=== PATIENT | male | born 1955 | race African-American/Black ===

== ENCOUNTER 2020-05-05 00:08 | Inpatient (IN) | payer MEDICARE, OTHER ==
[2020-05-05] MEDS ORDERED: Morphine 4 MG/ML VIAL ONE (00:56)
[2020-05-05] MEDS ORDERED: Ondansetron PF 4 MG/2 ML Vial ONE (00:56)
[2020-05-05 01:01] LABS: #Lymphocytes 0.6 thou/uL (1.20-3.40); #Monocytes 0.7 thou/uL (0.11-0.59); #Neutrophils 3.8 thou/uL (1.40-6.50); %Eosinophils 0.6 % (0.0-10.0); %Lymphocytes 11.6 % (21.0-51.0); %Monocytes 14.3 % (0.0-10.0); %Neutrophils 73.5 % (42.0-75.0); Hemoglobin 11.2 g/dL (14.0-18.0); Mean Corpuscular HGB CONC 34.1 g/dL (32.0-36.0); Mean Corpuscular Volume 99.8 fL (78.0-98.0); Mean Platelet Volume 8.8 fL (7.4-10.4); Platelet Count 152 thou/uL (130-400); Red Blood Cell (RBC) Count 3.28 mill/uL (4.70-6.10); White Blood Cell (WBC) Count 5.2 thou/uL (4.8-10.8)
[2020-05-05 01:07] LABS: INR-International Normal Ratio 2.5; PTT 38.8 sec (22.9-36.1); Prothrombin Time 26.4 sec (12.0-14.7)
[2020-05-05 01:21] LABS: ALT (SGPT) 25 U/L (8-55); AST (SGOT) 32 U/L (5-34); Albumin 3.8 g/dL (3.4-4.8); Alkaline Phosphatase 112 U/L (40-110); Anion Gap 11 mmol/L (10-20); BUN (Urea Nitrogen) 14 mg/dL (8.4-25.7); Bilirubin, Total 1.2 mg/dL (0.2-1.2); Calc. Creatinine Clearance 0 mL/min (70-130); Calcium 8.3 mg/dL (7.8-10.44); Carbon Dioxide 24 mmol/L (23-31); Chloride 99 mmol/L (98-107); Estimated GFR-MDRD 47; Globulin 3.7 g/dL (2.4-3.5); Glucose 116 mg/dL (80-115); Potassium 4.1 mmol/L (3.5-5.1); Protein, Total 7.5 g/dL (5.8-8.1); Sodium 130 mmol/L (136-145)
[2020-05-05] MEDS ORDERED: Ondansetron PF 4 MG/2 ML Vial IVP PRN (01:33)
[2020-05-05] MEDS ORDERED: Promethazine HCl 25 MG/ML VIAL IM PRN (01:33)
[2020-05-05] MEDS ORDERED: Dextrose 5% in Water 1,000 ML IV PRN (01:33)
[2020-05-05] MEDS ORDERED: Dextrose 50% Abboject 50 ML SYRINGE SLOW IVP PRN (01:33)
[2020-05-05] MEDS ORDERED: hydrALAZINE 20 MG/ML VIAL SLOW IVP PRN (01:33)
[2020-05-05] MEDS ORDERED: Cyclobenzaprine 10 MG TAB PO PRN (01:37)
[2020-05-05] MEDS ORDERED: traMADol HCl 50 MG TAB PO PRN (01:37)
[2020-05-05 01:58] LABS: Phosphorus 1.9 mg/dL (2.3-4.7)
[2020-05-05] MEDS ORDERED: Sodium Chloride 0.9% 1,000 ML IV SCH ×2 (04:00→08:45)
[2020-05-05] MEDS ORDERED: Sodium Phosphate 30 MMOL in Sodium Chloride 0.9% 250 ML 250 ML IVPB SCH (04:30)
--- NOTE | 2020-05-05 05:36 | HP ---
This is Adia Davison NP dictating a report for Al Pardo DO. REQUESTING PHYSICIAN: VIKTORIA SerraC CONSULTS: Orthopedic Surgery, Dr. Patel. CHIEF COMPLAINT: Mechanical fall one day ago, right knee pain. 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 The patient reports that he slipped and fell one and a half days ago. The patient reported right knee pain which has increased in pain and swelling since. The patient was initially seen at [facility] after the initial incident in which x-rays were obtained and revealed a tibial plateau fracture. It was recommended that he be transferred to [facility] for definitive care with Orthopedic Surgery, although the patient left AMA to attend a . The patient is from the [facility] and was in town for the . The patient states that he has been getting around in a wheelchair since falling. The patient has been wearing a knee immobilizer. The patient presented to the emergency room today for definitive care as his pain is increased and swelling has increased. The patient does take Xarelto every night and his last dose was on 05/04/2020 at 2230. The patient denies any chest pain, shortness of breath, or feeling dizzy or lightheaded prior to tripping and falling. The patient denies any recent illness, cough, cold, fever, chills, or congestion. REVIEW OF SYSTEMS: 10-point review of systems is negative unless otherwise indicated in the above HPI. PAST MEDICAL HISTORY: Hypertension, pacemaker, deep vein thrombosis. SURGICAL HISTORY: Pacemaker, left ytviy-qaa-syud amputation in 2006 from a DVT. SOCIAL HISTORY: Drinks approximately 2 beers a day but states does not have to drink every day, denies any illicit drug use, denies tobacco use, the patient is a retired auto salesman. ALLERGIES: NO KNOWN DRUG ALLERGIES. MEDICATIONS: Xarelto 10 mg at bedtime. Unknown blood pressure medications, states he takes multiple medications. PHYSICAL EXAMINATION: VITAL SIGNS: Blood pressure 128/83, pulse 70, respirations 20, temperature 98.4, SpO2 of 98% on room air. GENERAL: Well-appearing gentleman, awake, alert, in no distress. HEENT: Head is atraumatic and normocephalic. Pupils are equal. Mucous membranes are moist. NECK: Normal range of motion of neck, no cervical spine tenderness, trachea is midline. RESPIRATORY: Equal chest rise and fall, bilateral breath sounds clear, no wheezing, rales, or rhonchi. CARDIOVASCULAR: Regular rate, regular rhythm, no murmur. ABDOMEN: Soft, nontender, nondistended. EXTREMITIES: Left mland-wpj-fxwl amputation, right knee extremely swollen with ecchymosis, tender to palpation, decreased range of motion of the knee due to pain and swelling, edema extends to the foot. Unable to palpate dorsalis pedis or posterior tibial pulse. Positive pulses obtained with Doppler. Sensation is intact. Extremity is warm. NEURO: No focal deficits, GCS 15. LABORATORY DATA: WBC 5.2, RBC 3.28, hemoglobin 11.2, hematocrit 32.8, platelets 152. PT 26.4, INR 2.5, APTT 38.8. Sodium 130, potassium 4.1, chloride 99, carbon dioxide 24, BUN 14, creatinine 1.77, estimated GFR 47, glucose 116, calcium 8.3, phosphorus 1.9, magnesium 2.0, AST 32, ALT 25, alkaline phos 112, albumin 3.8. DIAGNOSTIC DATA: 12-lead EKG, paced rhythm at 70 beats per minute. Lower extremity CT, pending. Chest x-ray; cardiomegaly, dual-chamber pacemaker in place, pending official read. Right knee x-ray on 05/04/2020, impression, there is a mainly but slightly obliquely oriented fracture through the medial tibial plateau. A fracture line along the medial cortex of the proximal tibial shaft. IMPRESSION: 1. Status post mechanical fall. 2. Right tibial plateau fracture. 3. Acute traumatic pain. 4. Hyponatremia. 5. Hypophosphatemia. 6. Acute kidney injury. 7. Long-term anticoagulation use. 8. History of pacemaker placement, deep vein thrombosis, left awrqk-fzj-qkbf amputation, and hypertension. PLAN: 1. The patient will be n.p.o. with maintenance IV fluids, normal saline at 120 an hour. 2. Replace electrolytes. 3. Most likely the patient will go to the OR in 24 hours as the patient has taken his Xarelto recently. The patient will be on bedrest with a knee immobilizer in place until surgery. Postop, we will have PT and OT evaluate and treat. The plan will be discussed with the attending after this dictation. Job ID: [id number]
[2020-05-05] MEDS: Acetaminophen 500 MG TAB PO SCH ×4 (05:38→23:04)
[2020-05-05] MEDS: traMADol HCl 50 MG TAB PO SCH ×4 (05:39→23:05)
[2020-05-05 05:48] VITALS: BMI 20.9
[2020-05-05] MEDS: Polyethylene Glycol 3350 17 GM Packet PO SCH (07:20)
--- NOTE | 2020-05-05 09:14 | RAD ---
PORTABLE CHEST: DATE: 05/05/2020. PROVIDED CLINICAL HISTORY: Preop. FINDINGS: Comparison 10/26/2009. Cardiac silhouette remains enlarged. Left subclavian cardiac pacing device i s again seen, with lead tips overlying expected locations of RA and 3 leads overlying the left heart presumably all in RV. There is a disconnected lead at the generator. No focal consolidation, pleura l fluid, or pneumothorax apparent. IMPRESSION: Cardiomegaly without evidence for an acute cardiopulmonary process. POS: LETICIA
--- NOTE | 2020-05-05 09:17 | CT ---
PRELIMINARY REPORT/DIRECT RADIOLOGY/EMERGENCY AFTER HOURS PROCEDURE EXAM: CT right Knee without IV contrast CLINICAL HISTORY: Pt slipped and fell getting out of his car on 05/03/20. Reports right knee pain that has worsened since the injury. He was seen at [facility] ED earlier today where X-ray revealed tibial plateau fracture. He was to be transferred here for ortho eval, but left there AMA to attend a . He has come in here now that the is over. Denies any other complaints, concerns, o r injuries. No alleviating factors. Exacerbated by movement and weight bearing. TECHNIQUE: Axial images were acquired through the right knee without IV contrast. Reformatted images were reviewed. COMPARISON: None provided. FINDINGS: BONES: There is a comminuted fracture of the medial tibial plateau extending into the tibial spine re gion. 7 mm of step-off at the articular surface. The bones are osteopenic. JOINTS: No dislocation. The joint spaces are normal. Moderate joint effusion with hyperdense blood. SOFT TISSUES: Soft tissue swelling around the right knee. IMPRESSION: Comminuted fracture of the medial tibial plateau extending into the tibial spine region w ith side millimeters of step-off. Associated moderate lipohemarthrosis and soft tissue swelling. Ost eopenia. ELECTRONICALLY SIGNED BY: Vicente Carter MD May 05, 2020 2:02:31 AM CDT FINAL REPORT EMERGENT AFTER HOURS CT RIGHT KNEE: IMPRESSION: Agree with the preliminary interpretation. POS: LETICIA
[2020-05-05] MEDS ORDERED: CEFAZOLIN 2 GM in Premix Bag 1 BAG IVPB SCH (10:30)
--- NOTE | 2020-05-05 11:26 | CON ---
DATE OF CONSULTATION: This is Shane Chou PA-C dictating a report for Artie Patel MD. HISTORY OF PRESENT ILLNESS: We were asked by Trauma and Emergency Room to see the patient. The patient yesterday got up and stumbled sustaining a tibial plateau to right leg. 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 The patient is currently in a knee immobilizer and this feels okay as long as he has not moved his leg. He denies any other symptoms. No loss of consciousness when he fell and his foot sensations are good as are pulses on that side. PAST MEDICAL HISTORY: Hypertension, pacemaker, and DVT. PAST SURGICAL HISTORY: Pacemaker and above-knee amputation. SOCIAL HISTORY: Lives with his , , and has a few beers every couple of days. No nicotine or illicit drug use. FAMILY HISTORY: For this event, noncontributory. ALLERGIES: NO KNOWN DRUG ALLERGIES. CURRENT MEDICATIONS: Xarelto and he takes some OTC medicines and he does have a list of medications, but is not here currently. REVIEW OF SYSTEMS: No shortness of breath or chest pain currently. Just complains of that right knee being irritated, but no numbness or tingling. Also, denies any bowel or bladder problems. PHYSICAL EXAMINATION: GENERAL: Well-nourished, well-developed male, alert, pleasant, in no acute distress. Speech clear. Affect pleasant. Answers questions appropriately. He is alert and oriented x3. HEENT: Normal exam. Face symmetric. Tongue midline. NECK: Supple. Trachea midline. EXTREMITIES: Upper extremities are equal size, shape, symmetry. Normal bulk and tone. Sensation and pulses are equal. Respirations 16. No acute distress. Pelvis, no pain with rocking. Lower extremity: Right lower extremity, is in a knee immobilizer. His knee is quite tender to palpation and swollen. No ecchymoses seen as of yet. He is moving the right lower extremity from the knee down fairly well. Foot and ankle, no pain with palpation. Sensations and pulses are intact in the right lower extremity. Left lower extremity, above-knee amputation. DIAGNOSTIC STUDIES: X-ray showed a tibial plateau fracture. CBC; RBCs 3.28, hemoglobin 11.2, hematocrit 32.8, and platelets 152. Coags; PT 26.4, PTT 38.8, and INR 2.5. Chemistries; creatinine is a little high at 1.77, glucose 116, and alkaline phosphatase 112. ASSESSMENT: Right tibial plateau fracture secondary to fall. PLAN: Trauma admit the patient. They will deal with his medical issues or plan once he is off Xarelto for two days, which will be yesterday and today's evening dose. We will plan to take him to the operating room tomorrow and do an ORIF of the tibial plateau. I discussed with the patient the procedure. He had some questions and concerns that were addressed and answered. Once we talked about surgical risks and benefits, the patient was amenable to go forth with surgery. We will get him on surgery schedule. Antibiotics ordered. If his comes in, who he states is a nurse and has more questions, we will be happy to address those at that time Job ID: [id number]
[2020-05-05 12:28] LABS: SARS-CoV-2 MS2 Positive; SARS-CoV-2 N Gene Negative; SARS-CoV-2 S Gene Negative; SARS-CoV-2 orf1ab Negative
--- NOTE | 2020-05-05 17:11 | PRG ---
DATE OF SERVICE: 05/05/2020 SUBJECTIVE: The patient was seen this afternoon on rounds. He was sitting up in bed with no signs of acute distress. He reported his pain is well controlled. He is pending OR for a right tibial plateau fracture. The patient will go to the OR tomorrow. OBJECTIVE: VITAL SIGNS: Temperature 97.4, pulse 70, respirations 16, oxygen saturation 100% on room air, blood pressure 126/78. GENERAL: Well-appearing elderly male, sitting up in bed with no signs of acute distress. PULMONARY: Equal chest rise and fall. Clear breath sounds bilaterally. No signs of acute respiratory distress. CARDIAC: Regular rate and rhythm. GI: Abdomen is soft, nontender, nondistended. EXTREMITIES: 2+ pulses in all extremities. Gross motor and sensation intact. No significant swelling noted. Previous left AKA noted. Right-sided knee immobilizer in place and fitting appropriately. NEUROLOGIC: GCS is 15. LABORATORY FINDINGS: White count 5.2, hemoglobin 11.2, hematocrit 32.8, platelets 152. Sodium 130, potassium 4.1, chloride 99, bicarb 24, BUN 14, creatinine 1.77, glucose 116, phosphorus 1.9, magnesium 2.0. DIAGNOSTIC FINDINGS: There are no new diagnostic findings to report. ASSESSMENT: 1. Status post ground level fall 1 day ago, on Xarelto. 2. Right tibial plateau fracture. 3. Acute hyponatremia and hypophosphatemia. 4. Acute kidney injury. 5. History of deep venous thrombosis, left akfua-dna-imvr amputation from previous deep venous thrombosis, hypertension, and pacemaker. PLAN: Continue current regular diet. Continue normal saline at 100 an hour for a total of one additional liter. N.p.o. at midnight for OR tomorrow with Dr. Patel. The patient's is to bring his medications and we will complete a med rec at that time and start medications as clinically indicated. Continue to hold Xarelto at this time. Electrolytes have been replaced. Repeat electrolytes in the morning. Job ID: [id number]
[2020-05-05] MEDS: Carvedilol 6.25 MG TAB PO SCH (22:02)
[2020-05-05] MEDS: Sotalol HCl 80 MG TAB PO SCH (22:02)
[2020-05-05] MEDS: levETIRAcetam 500 mg/5 ml Oral Solution PO SCH (22:03)
[2020-05-05] MEDS: Sodium Bicarbonate Tab 325 MG TAB PO SCH (22:03)
[2020-05-06 05:29] LABS: Hemoglobin 10.5 g/dL (14.0-18.0); Mean Corpuscular HGB CONC 33.6 g/dL (32.0-36.0); Mean Corpuscular Hemoglobin 34.2 pg (27.0-31.0); Mean Platelet Volume 8.8 fL (7.4-10.4); Platelet Count 136 thou/uL (130-400); RBC Distribution Width 13.2 % (11.5-14.5); Red Blood Cell (RBC) Count 3.06 mill/uL (4.70-6.10); White Blood Cell (WBC) Count 4.4 thou/uL (4.8-10.8)
[2020-05-06 05:31] LABS: INR-International Normal Ratio 1.6; Prothrombin Time 18.9 sec (12.0-14.7)
[2020-05-06 06:03] LABS: Anion Gap 9 mmol/L (10-20); BUN (Urea Nitrogen) 16 mg/dL (8.4-25.7); Calc. Creatinine Clearance 46 mL/min (70-130); Calcium 7.6 mg/dL (7.8-10.44); Carbon Dioxide 23 mmol/L (23-31); Chloride 105 mmol/L (98-107); Estimated GFR-MDRD 49; Glucose 81 mg/dL (80-115); Magnesium 2.1 mg/dL (1.6-2.6); Phosphorus 2.7 mg/dL (2.3-4.7); Potassium 4.4 mmol/L (3.5-5.1); Sodium 133 mmol/L (136-145)
[2020-05-06] MEDS: Acetaminophen 500 MG TAB PO SCH ×3 (06:55→18:06)
[2020-05-06] MEDS: traMADol HCl 50 MG TAB PO SCH ×3 (06:55→18:04)
[2020-05-06] MEDS ORDERED: Meperidine HCl/PF 25 MG/ML VIAL SLOW IVP PRN (08:14)
[2020-05-06] MEDS ORDERED: Promethazine HCl 25 MG/ML VIAL SLOW IVP PRN (08:14)
[2020-05-06] MEDS ORDERED: Promethazine HCl 25 MG/ML VIAL IM PRN (08:14)
[2020-05-06] MEDS ORDERED: HYDROmorphone 2 MG/ML VIAL SLOW IVP PRN (08:14)
[2020-05-06] MEDS ORDERED: Ondansetron HCl/PF 4 MG/2 ML Vial IVP PRN (08:14)
[2020-05-06] MEDS ORDERED: Fentanyl 100 MCG/2 ML VIAL ONE (08:53)
[2020-05-06] MEDS ORDERED: Bupivacaine HCl 0.5%/Epinephrine 1:200,000/PF 30 ml Vial ONE (10:57)
[2020-05-06] MEDS ORDERED: Sodium Phosphate 15 MMOL in Sodium Chloride 0.9% 250 ML 250 ML IVPB SCH (13:00)
[2020-05-06] MEDS ORDERED: PROPOFOL 200 MG/20 ML VIAL ONE (14:07)
[2020-05-06] MEDS ORDERED: Lidocaine 1% PF 5 ML VIAL ONE (14:07)
[2020-05-06] MEDS ORDERED: Ondansetron PF 4 MG/2 ML Vial ONE (14:07)
[2020-05-06] MEDS ORDERED: Rocuronium Bromide 10 MG/ML (10ML VIAL) ONE (14:07)
[2020-05-06] MEDS ORDERED: PHENYLEPHRINE-NS 100 MCG/ML 10 ML SYRINGE ONE (14:07)
[2020-05-06] MEDS ORDERED: Dexamethasone 20 MG/5 ML VIAL ONE (14:07)
--- NOTE | 2020-05-06 14:16 | RAD ---
TWO VIEWS RIGHT FORELEG: Date: 05-06-2020 Provided Clinical History: ORIF FINDINGS: Two spot fluoroscopic views of the right proximal foreleg demonstrate medial sideplate and screw fixa tion of previously described medial tibial plateau fracture, with resultant improved alignment. IMPRESSION: As above. POS: LETICIA
[2020-05-06] MEDS: levETIRAcetam 500 mg/5 ml Oral Solution PO SCH ×2 (14:19→21:11)
[2020-05-06] MEDS: Sodium Bicarbonate Tab 325 MG TAB PO SCH ×2 (14:20→21:11)
[2020-05-06] MEDS: Allopurinol 300 MG TAB PO SCH (14:20)
[2020-05-06] MEDS: Carvedilol 6.25 MG TAB PO SCH ×2 (14:21→21:08)
[2020-05-06] MEDS: Polyethylene Glycol 3350 17 GM Packet PO SCH (14:24)
[2020-05-06] MEDS: CEFAZOLIN 2 GM in Premix Bag 1 BAG IVPB SCH ×2 (14:59→22:07)
--- NOTE | 2020-05-06 15:49 | OP ---
DATE OF PROCEDURE: 05/06/2020 PREOPERATIVE DIAGNOSIS: Medial tibial plateau fracture, right. POSTOPERATIVE DIAGNOSIS: Medial tibial plateau fracture, right. PROCEDURE PERFORMED: Open reduction and internal fixation of right medial tibial plateau. ANESTHESIA: General. WELDER ASSEMBLER: Bisi Costello PA-C TOURNIQUET TIME: 122 minutes at 300 mmHg. IMPLANTS: Synthes 3.5-mm LCP posterior medial plate, 6-hole. COMPLICATIONS: None. DRAINS: None. SPECIMENS: None. OUTCOME: Near-anatomic alignment. INDICATIONS: The patient is a 64-year-old gentleman, who is status post above-knee amputation for blood clots many years ago, who presented to the emergency room on May 05, 2020, following a slip and fall approximately 1-1/2 days ago. The patient reports that over the last day and a half, he has had some increasing pain and as such, presented to the emergency room, where he was found to have a medial tibial plateau fracture. CT scan shows a central area of joint depression and then this displaced posterior medial segment as well. After discussion with the patient including risks and benefits, we decided to proceed with open reduction and internal fixation. Informed consent has been obtained. I believe, all questions answered. DESCRIPTION OF PROCEDURE: The patient was brought to the operating room and a time-out performed followed by induction of general anesthesia. The patient was positioned supine on the OR table and a sterile prep and drape was performed of the right lower extremity. Next, a curvilinear incision was made along the medial aspect of the proximal tibia and knee. This incision basically going from the medial epicondyle of the distal femur down essentially between the interval of the pes anserinus and the medial gastroc. After the skin was sharply incised, dissection was carried down to the underlying fascia. This too was incised in line with skin incision and reflected anteriorly and posteriorly revealing the underlying medial collateral ligament as well as the pes tendons and the medial gastrocs. Initially, the interval between the hamstring tendons and gastroc was developed, however, the fracture was a bit anterior to the hamstring tendons and as such, this interval was developed anteriorly exposing the fracture. Minimal subperiosteal dissection was carried out along the fracture line and then the medial fracture fragment was opened to expose the depressed central fragment. While a valgus stress was applied to this knee, the joint depression was elevated, backfilled with deeper cancellous bone and then held in place with a K-wire. The K-wire was passed all the way into this fragment and delivered out through the lateral aspect of the knee, so that the rest of the fracture could be reconstructed while the K-wire held this piece of bone in place. Next, the larger fragment was reduced through this, now elevated central piece. This fracture was found to have a large spike of bone that went below the surface of the hamstring tendons. The apex of this fracture fragment was identified and then reduced and held in place with a bone tenaculum initially and then K-wire subsequent. With this reduction, the joint surface reduced to a near anatomic alignment. This was held in place with multiple K-wires. Next, a posterior medial plate was applied to the medial surface of the distal tibia. This did require some mild contouring. Once appropriately positioned, a locking screw was passed through the horizontal limb of this plate just below the surface of the joint, getting good initial fixation of the plate against the bone. A cortical screw was then applied distal to the fracture further affixing the plate to the tibia. AP and lateral C-arm images were then obtained that showed near-anatomic alignment of fracture and appropriate positioning of the hardware. Next, two additional locking screws were placed in the horizontal limb of the plate and then multiple locking screws applied distally. At the completion of this, AP, lateral, and oblique images showed anatomic alignment of the fracture. The wound was then thoroughly irrigated with normal saline. It should be noted that during the exposure, a vertical split was made in the medial malleolus anteriorly. This was performed so the joint surface could be well visualized. This was thoroughly irrigated prior to closure and then 0 PDS suture was used to repair the meniscus along with the meniscal capsule junction. This was then followed by 0 Vicryl for a deep fascial closure, 2-0 Vicryl subcutaneously and madison for the skin. Madison were also used for a couple of small poke holes that were utilized for the bone tenaculum. At the completion of wound closure, Xeroform gauze, Webril, fiberglass splint, and knee immobilizer was applied to the leg. The patient was then transferred to recovery room in stable condition. There were no complications. He tolerated the procedure well. Job ID: [id number]
[2020-05-06] MEDS: Sotalol HCl 80 MG TAB PO SCH ×2 (16:22→21:11)
[2020-05-06] MEDS ORDERED: Acetaminophen/Codeine 30-300mg Tablet PO PRN ×2 (18:20)
[2020-05-06] MEDS: Acetaminophen 325 MG TAB PO SCH (19:51)
--- NOTE | 2020-05-06 20:19 | PRG ---
DATE OF SERVICE: 05/06/2020 SUBJECTIVE: The patient was seen this afternoon after surgery. He was lying in bed with no signs of acute distress. He was postop after fixation of a right tibial plateau fracture. He reported pain well controlled. Tolerating a diet. Has not worked with Physical Therapy yet. OBJECTIVE: VITAL SIGNS: Temperature 97.9, pulse 70, respirations 16, oxygen saturation 97% on room air, blood pressure 143/79. GENERAL: Well-appearing elderly male, lying in bed with no signs of acute distress. PULMONARY: Equal chest rise and fall. Clear breath sounds bilaterally. No signs of acute respiratory distress. CARDIAC: Regular rate and rhythm. GI: Abdomen soft, nontender, nondistended. EXTREMITIES: 2+ pulses in all extremities. Left lower extremity with previous AKA, right lower extremity with dressing that is clean, dry, and intact with good cap refill. NEUROLOGIC: GCS 15. LABORATORY FINDINGS: White count 4.4, hemoglobin 10.5, hematocrit 31.1, platelets 136. Sodium 133, potassium 4.4, chloride 105, bicarb 23, BUN 16, creatinine 1.70, glucose 81, phosphorus 2.7, magnesium 2.1. DIAGNOSTIC FINDINGS: There are no new diagnostic findings to report. ASSESSMENT: 1. Status post mechanical fall from standing on Xarelto. 2. Right tibial plateau fracture, status post repair. 3. Acute kidney injury versus chronic kidney disease, slightly improved. 4. History of deep vein thrombosis, left above-knee amputation, hypertension, pacemaker, seizures, and dementia. PLAN: Continue regular diet. Discontinue IV fluids. Continue home medications. Replace phosphorus. The patient is to start working with Physical and Occupational Therapy tomorrow. He is nonweightbearing on bilateral lower extremities. He is going to have to learn to transfer from a bed to wheelchair. The patient normally gets around on a wheelchair. We will start Xarelto for DVT prophylaxis at the appropriate time, but we will hold off for now. Job ID: [id number]
[2020-05-07] MEDS: Acetaminophen 325 MG TAB PO SCH ×5 (01:00→23:07)
[2020-05-07 05:27] LABS: Hemoglobin 9.3 g/dL (14.0-18.0); Mean Corpuscular HGB CONC 32.1 g/dL (32.0-36.0); Mean Corpuscular Hemoglobin 32.6 pg (27.0-31.0); Mean Platelet Volume 8.9 fL (7.4-10.4); Platelet Count 133 thou/uL (130-400); RBC Distribution Width 13.3 % (11.5-14.5); Red Blood Cell (RBC) Count 2.85 mill/uL (4.70-6.10)
[2020-05-07 05:45] LABS: Anion Gap 8 mmol/L (10-20); BUN (Urea Nitrogen) 12 mg/dL (8.4-25.7); Calc. Creatinine Clearance 47 mL/min (70-130); Calcium 7.4 mg/dL (7.8-10.44); Carbon Dioxide 26 mmol/L (23-31); Chloride 104 mmol/L (98-107); Estimated GFR-MDRD 50; Glucose 124 mg/dL (80-115); Phosphorus 2.4 mg/dL (2.3-4.7); Potassium 4.3 mmol/L (3.5-5.1); Sodium 134 mmol/L (136-145)
[2020-05-07] MEDS: CEFAZOLIN 2 GM in Premix Bag 1 BAG IVPB SCH (05:52)
[2020-05-07] MEDS: Aspirin 81 mg Enteric Coated Tablet PO SCH (08:44)
[2020-05-07] MEDS: Allopurinol 300 MG TAB PO SCH (08:45)
[2020-05-07] MEDS: Sotalol HCl 80 MG TAB PO SCH ×2 (08:45→20:42)
[2020-05-07] MEDS: Sodium Bicarbonate Tab 325 MG TAB PO SCH ×2 (08:45→20:42)
[2020-05-07] MEDS: Carvedilol 6.25 MG TAB PO SCH ×2 (08:45→20:42)
[2020-05-07] MEDS: levETIRAcetam 500 mg/5 ml Oral Solution PO SCH ×2 (08:46→20:41)
[2020-05-07] MEDS: Polyethylene Glycol 3350 17 GM Packet PO SCH (08:46)
[2020-05-07] MEDS ORDERED: Enoxaparin Sodium 40 MG/0.4 ML SYRINGE SC SCH (09:00)
--- NOTE | 2020-05-07 17:59 | PRG ---
DATE OF SERVICE: 05/07/2020 SUBJECTIVE: The patient was seen this morning during rounds. He was sitting up in bed with no signs of acute distress. He reported pain is well controlled. Tolerating his diet. He worked with Physical and Occupational Therapy and is able to slide over on his slide board appropriately from the bed to the wheelchair. 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 OBJECTIVE: VITAL SIGNS: Temperature 97.6, pulse 70, respirations 16, oxygen saturation 100% on room air, and blood pressure 138/85. GENERAL: Well-appearing elderly male, sitting up in bed with no signs of acute distress. PULMONARY: Equal chest rise and fall. Clear breath sounds bilaterally. No signs of acute respiratory distress. CARDIAC: Regular rate and rhythm. GI: Abdomen is soft, nontender, nondistended. EXTREMITIES: 2+ pulses in all extremities. Gross motor and sensation intact. Left lower extremity AKA is at baseline. Right lower extremity with a knee immobilizer, that is in place and fitting appropriately. LABORATORY FINDINGS: White count 8.0, hemoglobin 9.3, hematocrit 28.9, platelets 133. Sodium 134, potassium 4.3, chloride 104, bicarb 26, BUN 12, creatinine 1.67, glucose 124, phosphorus 2.4, magnesium 2.0. ASSESSMENT: 1. Status post ground level fall with delayed presentation, on Xarelto. 2. Right tibial plateau fracture, status post repair. 3. Electrolyte derangements, improved. 4. Acute kidney injury versus chronic kidney disease, more likely chronic kidney disease. 5. History of deep vein thrombosis, left above-knee amputation, hypertension, pacemaker, seizures, and dementia. PLAN: Continue current diet and pain regimen. Continue physical and occupational therapy. The patient to restart home Xarelto and aspirin today. Repeat blood work in the morning. If hemoglobin is stable and the patient is hemodynamically stable, we will discharge him home to the care of his family. I have asked Case Management to obtain a slide board for him. This patient was discussed with Dr. Pardo before this dictation. Job ID: [id number]
[2020-05-07] MEDS ORDERED: Rivaroxaban 10 MG TAB PO SCH (21:00)
--- NOTE | 2020-05-07 23:21 | PRG ---
DATE OF SERVICE: 05/07/2020 SUBJECTIVE: The patient remains on the surgical floor, resting comfortably, in no acute distress. The patient's nurse reports his pain has been well controlled and tolerating a regular diet. OBJECTIVE: VITAL SIGNS: Stable, afebrile. PLAN: Continue supportive care and physical therapy. Continue the patient's home Xarelto and aspirin. We will repeat labs in the morning. As long as the patient's hemoglobin is stable and vital signs are stable, he should be able to be discharged home with family. The patient uses a wheelchair at home due to his left AKA. Case management is working on a slide board for him. Job ID: [id number]
[2020-05-08 05:14] LABS: Hemoglobin 9.8 g/dL (14.0-18.0); Mean Corpuscular HGB CONC 31.2 g/dL (32.0-36.0); Platelet Count 132 thou/uL (130-400); RBC Distribution Width 13.5 % (11.5-14.5); Red Blood Cell (RBC) Count 3.05 mill/uL (4.70-6.10); White Blood Cell (WBC) Count 3.9 thou/uL (4.8-10.8)
[2020-05-08 05:24] LABS: Anion Gap 11 mmol/L (10-20); BUN (Urea Nitrogen) 12 mg/dL (8.4-25.7); Calc. Creatinine Clearance 47 mL/min (70-130); Calcium 8.2 mg/dL (7.8-10.44); Carbon Dioxide 22 mmol/L (23-31); Chloride 105 mmol/L (98-107); Estimated GFR-MDRD 51; Glucose 85 mg/dL (80-115); Magnesium 1.8 mg/dL (1.6-2.6); Phosphorus 1.4 mg/dL (2.3-4.7); Potassium 4.4 mmol/L (3.5-5.1); Sodium 134 mmol/L (136-145)
[2020-05-08] MEDS ORDERED: Sodium Phosphate 30 MMOL in Sodium Chloride 0.9% 250 ML 250 ML IVPB SCH (05:45)
[2020-05-08] MEDS: Acetaminophen 325 MG TAB PO SCH ×3 (06:36→18:42)
[2020-05-08] MEDS: Sodium Bicarbonate Tab 325 MG TAB PO SCH (09:20)
[2020-05-08] MEDS: Aspirin 81 mg Enteric Coated Tablet PO SCH (09:20)
[2020-05-08] MEDS: Allopurinol 300 MG TAB PO SCH (09:21)
[2020-05-08] MEDS: Carvedilol 6.25 MG TAB PO SCH (09:21)
[2020-05-08] MEDS: levETIRAcetam 500 mg/5 ml Oral Solution PO SCH (09:21)
[2020-05-08] MEDS: Sotalol HCl 80 MG TAB PO SCH (09:21)
[2020-05-08] MEDS: Polyethylene Glycol 3350 17 GM Packet PO SCH (09:23)
[2020-05-08 16:33] VITALS: BP 143/83; TEMP 99.5
== END 2020-05-08 19:41 | disposition home or self-care (01) | DRG 493 ==
LOC: ERS 00:08 → SURG A 01:38
PROVIDERS: ADMIT Surgery; ATTEND Surgery
PROC: 0QSG04Z Reposition Right Tibia with Internal Fixation Device, Open Approach (ICD-10-PCS; principal; 2020-05-06)
DX: S82.141A Displaced bicondylar fracture of right tibia, initial encounter for closed fracture (principal); E87.1 Hypo-osmolality and hyponatremia; N17.9 Acute kidney failure, unspecified; E83.39 Other disorders of phosphorus metabolism; W18.30XA Fall on same level, unspecified, initial encounter; I12.9 Hypertensive chronic kidney disease with stage 1 through stage 4 chronic kidney disease, or unspecified chronic kidney disease; F03.90 Unspecified dementia, unspecified severity, without behavioral disturbance, psychotic disturbance, mood disturbance, and anxiety; N18.9 Chronic kidney disease, unspecified; Z95.0 Presence of cardiac pacemaker; Z89.612 Acquired absence of left leg above knee; Z86.718 Personal history of other venous thrombosis and embolism; Z79.01 Long term (current) use of anticoagulants
CPT/HCPCS: 36415; 71045; 76000; 80048; 80053; 83735; 84100; 85025; 85027; 85610; 85730; 86850; 86900; 86901; 87635; 93005; C1713; J0670; J0690; J1100; J1650; J2001; J2270; J2405; J2704; J3010; J7050; U0003